=== PATIENT | female | born 1935 | race Hispanic/Latino ===

== ENCOUNTER 2020-12-17 02:00 | Emergency (ER) | payer MEDICARE ==
--- NOTE | 2020-12-17 02:25 | Emergency Department Report ---
HPI - General Time Seen by Provider: 12/17/20 02:09 - HPI HPI: Room 3 The patient is an 85-year-old female present with a chief complaint of hypoxia and altered mental status. Patient was transported from retirement by EMS. EMS states the patient is Covid positive and they were called secondary to altered mental status and shortness of breath. Patient was found to be hypoxic in the 80s when EMS arrived. Patient was placed on nonrebreather with improvement the patient SPO2 to greater than 95%. EMS states that the patient became more alert with a supplemental O2 but does not answer questions. EMS reports that the staff states that the patient is normally verbal but she has not spoken since 12/15/2020. ED Past Medical Hx - Past Medical History Hx Congestive Heart Failure: Yes Hx COPD: Yes Additional medical history: A. fib, GERD, hypothyroidism - Family History Family history: no significant - Social History Smoking Status: Unknown if ever smoked Substance Use Type: None ED Review of Systems ROS: Stated complaint: AMS Other details as noted in HPI Comment: Unobtainable due to pts medical conditions Physical Exam - Physical Exam Physical Exam: GENERAL: The patient is well-developed well-nourished female sitting on stretcher exhibiting increased work of breathing. [] HEENT: Normocephalic. Atraumatic. Extraocular motions are intact. Patient has moist mucous membranes. NECK: Supple. Trachea midline CHEST/LUNGS: Coarse breath sounds throughout. There is increased work of breathing HEART/CARDIOVASCULAR: Irregularly irregular. There is tachycardia. There is no gallop rub or murmur. ABDOMEN: Abdomen is soft, nontender. Patient has normal bowel sounds. There is no abdominal distention. SKIN: There is no edema. There is no diaphoresis. NEURO: The patient is awake, alert, and oriented. The patient is cooperative. The patient has no focal neurologic deficits. The patient has normal speech MUSCULOSKELETAL: There is no evidence of acute injury. ED Course - Reevaluation(s) Reevaluation #1: 12/17/20 04:02 Patient with continued increased work of breathing and altered mental status despite BiPAP. Patient was intubated to secure her airway - Intubation Sedative: Etomidate Mg Given: 20 Paralytic: Succinylcholine Mg Given: 100 Laryngoscope: fiberoptic video scope Size: 3 Assist Device Used: fiberoptic device ET Tube Size: 7 Tube Secured Depth (cm): 21 Tube Secured Location: lips Tube Placement Confirmation: visualized tube passing t, equal breath sounds bilat, no breath sounds over epi, confirmation by capnometr Patient Tolerated Procedure: no complications Intubation Complications: none ED Medical Decision Making - Lab Data Result diagrams: 12/17/20 02:49 12/17/20 02:49 Laboratory Tests 12/17/20 12/17/20 12/17/20 02:49 02:49 02:49 WBC 25.4 H RBC 5.99 H Hgb 15.1 H Hct 50.6 H MCV 84 MCH 25 L MCHC 30 RDW 19.8 H Plt Count 293 APTT 21.6 L D-Dimer > 93052 H Sodium 154 H Potassium 6.4 H* Chloride 110.2 H Carbon Dioxide 17 L Anion Gap 33 BUN 145 H Creatinine 4.0 H Estimated GFR 11 BUN/Creatinine Ratio 36 Glucose 254 H Lactic Acid Calcium 9.6 Magnesium Ferritin Total Bilirubin 0.70 AST 42 H ALT 32 Alkaline Phosphatase 107 Lactate Dehydrogenase 659 H Troponin T 0.240 H* C-Reactive Protein 5.30 H NT-Pro-B Natriuret Pep Total Protein 7.5 Albumin 3.5 L Albumin/Globulin Ratio 0.9 Triglycerides 406 H Cholesterol 222 H LDL Cholesterol Direct TNR HDL Cholesterol 32 L Cholesterol/HDL Ratio 6.93 12/17/20 12/17/20 12/17/20 02:49 02:49 02:49 WBC RBC Hgb Hct MCV MCH MCHC RDW Plt Count APTT D-Dimer Sodium Potassium Chloride Carbon Dioxide Anion Gap BUN Creatinine Estimated GFR BUN/Creatinine Ratio Glucose Lactic Acid 7.30 H* Calcium Magnesium 4.20 H Ferritin 1637.0 H Total Bilirubin AST ALT Alkaline Phosphatase Lactate Dehydrogenase Troponin T C-Reactive Protein NT-Pro-B Natriuret Pep 00513 H Total Protein Albumin Albumin/Globulin Ratio Triglycerides Cholesterol LDL Cholesterol Direct HDL Cholesterol Cholesterol/HDL Ratio - EKG Data -: EKG Interpreted by Me Rate: tachycardia (106 bpm) - EKG Data When compared to previous EKG there are: previous EKG unavailable Interpretation: other (A. fib with RVR) - Radiology Data Radiology results: report reviewed (Chest x-ray), image reviewed (Chest x-ray #1, chest x-ray #2) interpreted by me: Chest [id number] patchy infiltrates. No pneumothorax Chest x-ray #2-bilateral patchy infiltrates. No pneumothorax. ET tube in place [facility] [address] [place] [address] XRay Report Signed Patient: JUANCHO HILL MR#: [id number] : 1935 Acct:[id number] Age/Sex: 85 / F ADM Date: 12/17/20 Loc: ED Attending Dr: Ordering Physician: ZBIGNIEW SPEARS MD Date of Service: 12/17/20 Procedure(s): XR chest 1V ap Accession Number(s): [id number] cc: ZBIGNIEW SPEARS MD Fluoro Time In Minutes: CHEST 1 VIEW INDICATION / CLINICAL INFORMATION: Hypoxia. FINDINGS: SUPPORT DEVICES: None. HEART / MEDIASTINUM: No significant abnormality. LUNGS / PLEURA: Severe multifocal bilateral airspace pneumonia. Signer Name: Will Song MD Signed: 12/17/2020 3:06 AM Workstation Name: [id number] Transcribed By: BC Dictated By: Will Song MD Electronically Authenticated By: Will Song MD Signed Date/Time: 12/17/20305 DD/ 4 TD/TT: Print Cancel - Differential Diagnosis COVID-19 pneumonia, COPD exacerbation, CHF exacerbation, Critical care attestation.: If time is entered above; I have spent that time in minutes in the direct care of this critically ill patient, excluding procedure time. ED Disposition Clinical Impression: Pneumonia due to COVID-19 virus, Sepsis, Acute renal failure, Hyperkalemia, Atrial fibrillation with RVR Disposition: ADMITTED INPATIENT Is pt being admited?: Yes Does the pt Need Aspirin: No Condition: Serious Instructions: Bacterial Pneumonia (ED) Referrals: PRIMARY CARE, [Primary Care Provider] - 3-5 Days Time of Disposition: 04:47 (Hospitalist paged (Dr Niño))
[2020-12-17] MEDS ORDERED: AMIODARONE 150 MG in DEXTROSE 5% IN WATER 97 ML IV ONE (02:42)
[2020-12-17] MEDS ORDERED: dexAMETHasone 20 MG/5 ML VIAL IV ONE (02:57)
[2020-12-17] MEDS ORDERED: ACETAMINOPHEN 650 MG RECT SUPP PR PRN (03:00)
[2020-12-17] MEDS ORDERED: AMIODARONE 900 MG in DEXTROSE 5% IN WATER 482 ML IV SCH (03:00)
[2020-12-17 03:08] LABS: Mean Corpuscular HGB Conc 30 % (30-34); Mean Corpuscular Volume 84 fl (79-97); Platelet Count 293 K/mm3 (140-440); Red Blood Count 5.99 M/mm3 (3.65-5.03); Red Cell Distribution Width 19.8 % (13.2-15.2)
--- NOTE | 2020-12-17 03:10 | XRay Report ---
CHEST 1 VIEW INDICATION / CLINICAL INFORMATION: Hypoxia. FINDINGS: SUPPORT DEVICES: None. HEART / MEDIASTINUM: No significant abnormality. LUNGS / PLEURA: Severe multifocal bilateral airspace pneumonia. Signer Name: Will Song MD Signed: 12/17/2020 3:06 AM Workstation Name: [id number]
[2020-12-17 03:14] LABS: Hematocrit 50.6 % (30.3-42.9); Hemoglobin 15.1 gm/dl (10.1-14.3)
[2020-12-17 03:22] LABS: Partial Thromboplastin Time 21.6 Sec. (24.2-36.6)
[2020-12-17 03:33] VITALS: BP 141/122
[2020-12-17 03:35] LABS: Alanine Aminotransferase 32 units/L (7-56); Albumin 3.5 g/dL (3.9-5); Calcium 9.6 mg/dL (8.4-10.2); Hemolysis Index 8
[2020-12-17 03:43] LABS: BUN/Creatinine Ratio 36; Blood Urea Nitrogen 145 mg/dL (7-17)
[2020-12-17] MEDS ORDERED: ROCURONIUM 50 MG/5 ML INJ IV ONE (03:55)
[2020-12-17] MEDS ORDERED: ETOMIDATE 20 MG/10 ML INJ IV ONE (03:55)
[2020-12-17 03:59] LABS: Chol/HDL Ratio 6.93 %; HDL Cholesterol 32 mg/dL (40-59); LDL Cholesterol,Direct TNR mg/dL (50-130)
[2020-12-17] MEDS ORDERED: ALBUTEROL 2.5 MG/3 ML NEBU IH ONE (04:04)
[2020-12-17] MEDS ORDERED: SODIUM POLYSTYRENE 15 GM/60 ML ORAL LIQD PO ONE (04:05)
[2020-12-17] MEDS ORDERED: SODIUM BICARB 8.4% 50 MEQ/50 ML SYRINGE IV ONE (04:05)
[2020-12-17] MEDS ORDERED: INSULIN REGULAR, HUMAN 100 UNITS/1 ML IV ONE (04:05)
[2020-12-17] MEDS ORDERED: DEXTROSE 50% IN WATER (25GM) 50 ML SYRINGE IV ONE (04:05)
[2020-12-17 04:11] LABS: Free T4 (Free Thyroxine) 2.21 ng/dL (0.76-1.46)
[2020-12-17] MEDS ORDERED: CALCIUM GLUCONATE 1,000 MG in SODIUM CHLORIDE 0.9% 100 ML IV ONE (04:45)
[2020-12-17 04:48] LABS: Anisocytosis 1+; Band Neutrophils # (Manual) 0.1 K/mm3; Hypochromasia 1+; Monocytes % (Manual) 2.5 % (0.0-7.3); Platelet Estimate Consistent w Auto; Total Cells Counted 200
--- NOTE | 2020-12-17 05:10 | XRay Report ---
CHEST 1 VIEW INDICATION / CLINICAL INFORMATION: Status post intubation. FINDINGS: SUPPORT DEVICES: Endotracheal tube terminates about 4 cm above. HEART / MEDIASTINUM: No significant abnormality. LUNGS / PLEURA: No change from immediately prior exam Signer Name: Will Song MD Signed: 12/17/2020 5:06 AM Workstation Name: [id number]
--- NOTE | 2020-12-17 05:57 | Event Note ---
Date: 12/17/20 Called by the ER physician to admit 85-year-old female from residential who had been diagnosed with COVID-19 earlier this month and brought in by EMS. Patient had gone into cardiopulmonary arrest while in the emergency room and she was successfully resuscitated by the ER physician. However a few minutes after being resuscitated patient went into another arrest and all resuscitative measures proved futile. Patient therefore not admitted into the hospitalist service.
--- NOTE | 2020-12-17 05:58 | Event Note ---
Date: 12/17/20 Code Blue: patient pulseless, CPR started. ACLS protocol followed. 05:49 TOD. No pulse or heart sounds on exam
--- NOTE | 2020-12-18 09:53 | Electrocardiograph Report ---
[facility] Test Date: 2020-12-17 Test Time: 03:40:39 Pat Name: JUANCHO HILL Department: Room: Gender: F [employer]er: LUCITA : 1935 Requested By: ZBIGNIEW SPEARS Order Number: [id number] Reading MD: Jerry Benavides Measurements Intervals [place] Rate: 106 P: SC: QRS: 69 QRSD: 92 T: 201 QT: 332 QTc: 441 Interpretive Statements Atrial fibrillation Repol abnrm suggests ischemia, anterolateral No previous ECG available for comparison Electronically Signed On 12-18-2020 9:53:10 EDT by Jerry Benavides
== END 2020-12-17 10:34 | disposition admitted as inpatient to this hospital (09) ==
LOC: ED 02:00
DX: U07.1 COVID-19 (principal); J12.82 Pneumonia due to coronavirus disease 2019; A41.9 Sepsis, unspecified organism; N17.9 Acute kidney failure, unspecified; I48.91 Unspecified atrial fibrillation; E87.5 Hyperkalemia; J44.9 Chronic obstructive pulmonary disease, unspecified; I50.9 Heart failure, unspecified; K21.9 Gastro-esophageal reflux disease without esophagitis; E03.9 Hypothyroidism, unspecified
CPT/HCPCS: 36415; 71045; 80053; 80061; 82140; 82728; 83615; 83735; 83880; 84145; 84439; 84443; 84484; 85007; 85025; 85379; 85730; 86140; 87040; 93005; 94002; 94644; 96365; 96366; 96375; 99285; J0282; J0610; J1100; J7060; J1815